=== PATIENT | female | born 1965 | race Caucasian/White ===

== ENCOUNTER 2020-08-07 06:01 | Inpatient (IN) ==
[2020-07-31 12:34] LABS: Basophils % 0.5 % (0.0-0.8); Eosinophils # 0.2 10*3/uL (0.0-0.87); Hematocrit 44.9 VOL% (35.7-47.0); Hemoglobin 14.4 GM/DL (12.0-16.0); Immature Granulocytes % 0.4 %; Immature Granulocytes Absolute 0.02 #; Lymphocytes # 1.7 10*3/uL (1.4-4.0); Mean Corpuscular HGB Conc 32.1 GM/DL (32-36); Mean Corpuscular Volume 94.1 FL (87-102); Mean Platelet Volume 9.5 FL (9.6-12.0); Neutrophils % 58.1 % (38.7-73.9); Platelet Count 268 T/CUMM (130-400); Red Blood Count 4.77 MC/CUMM (3.8-5.5); Red Cell Distribution Width 14.1 % (9.3-17.3); White Blood Count 5.7 T/CUMM (4-12)
[2020-07-31 12:41] LABS: Calcium 9.5 MG/DL (8.5-10.1); Osmolality,Calculated 275.7 MOS/KG (273-304); Potassium 4.6 MMOL/L (3.5-5.1)
[2020-07-31 12:49] LABS: Bacteria,Urine Occasional /HPF (Few); Bilirubin,Urine Negative (Negative); Blood, Urine Small mg/dL (Negative); Glucose,Urine (UA) Negative (Negative); Ketones,Urine Negative (Negative); Mucus,Urine Occasional /LPF (Occasional); Nitrite,Urine Negative (Negative); Protein,Urine Negative; RBC,Urine 1 /HPF (0-4); Squamous Epithelial Cell,Urine Occasional /HPF (0-10); Urine Appearance CLEAR (Clear); Urine Color Straw (Yellow); Urine Specific Gravity 1.012 (1.001-1.035); Urine Urobilinogen < 2.0 EU/DL (0.2-1.0)
[~2020-08-07 06:01] MED LIST: ALVIMOPAN 12 MG CAPSULE PO ONE; LEVOFLOXACIN INJ 500 MG/100 ML PREMIX IV ONE
[2020-08-07] MEDS ORDERED: LACTATED RINGERS 1,000 ML IV SCH (06:30)
[2020-08-07] MEDS ORDERED: MIDAZOLAM 2 MG/2 ML VIAL ONE (06:51)
[2020-08-07] MEDS ORDERED: propofoL 200 MG/20 ML VIAL IV ONE (06:51)
[2020-08-07] MEDS ORDERED: fentaNYL 100 MCG/2 ML VIAL ONE ×2 (06:51→08:29)
[2020-08-07] MEDS ORDERED: LIDOCAINE 2% 5 ML VIAL ONE (06:51)
[2020-08-07] MEDS ORDERED: ROCURONIUM 50 MG/5 ML VIAL IV ONE (06:51)
[2020-08-07] MEDS ORDERED: SCOPOLAMINE 1.5 MG PATCH TRANSDERM ONE (07:01)
[2020-08-07] MEDS ORDERED: SEVOFLURANE 1 UNIT/15 MINUTE INH ONE ×10 (07:09→10:15)
[2020-08-07] MEDS ORDERED: PHENYLEPHRINE 10 MG/1 ML VIAL IV ONE (08:13)
[2020-08-07] MEDS ORDERED: SODIUM CHLORIDE 0.9% 100 ML IV ONE (08:14)
[2020-08-07] MEDS ORDERED: DEXAMETHASONE 4 MG/1 ML VIAL ONE (08:30)
[2020-08-07] MEDS ORDERED: ONDANSETRON 4 MG/2 ML VIAL ONE (08:30)
[2020-08-07] MEDS ORDERED: LACTATED RINGERS 1,000 ML IV ONE (09:14)
[2020-08-07] MEDS ORDERED: GLYCOPYRROLATE 0.4 MG/2 ML VIAL ONE (10:15)
[2020-08-07] MEDS ORDERED: NALOXONE 0.4 MG/ML VIAL IV PRN ×2 (10:37→10:58)
[2020-08-07] MEDS ORDERED: diphenhydrAMINE 50 MG/1 ML VIAL IV PRN ×2 (10:37→10:58)
[2020-08-07] MEDS ORDERED: ONDANSETRON 4 MG/2 ML VIAL IV PRN ×2 (10:37→10:58)
[2020-08-07] MEDS ORDERED: HYDROmorphone 2 MG/1 ML VIAL IV PRN (10:58)
[2020-08-07] MEDS ORDERED: MEPERIDINE 25 MG/1 ML VIAL IV PRN (10:58)
[2020-08-07] MEDS ORDERED: PROMETHAZINE INJ 25 MG in SODIUM CHLORIDE 0.9% 50 ML IV PRN (10:58)
[2020-08-07 11:00] LABS: Bilirubin,Urine Negative (Negative); Blood, Urine Large mg/dL (Negative); Glucose,Urine (UA) Negative (Negative); Ketones,Urine Negative (Negative); Mucus,Urine Occasional /LPF (Occasional); Nitrite,Urine Negative (Negative); Protein,Urine 100 MG/DL; RBC,Urine 822 /HPF (0-4); Squamous Epithelial Cell,Urine Occasional /HPF (0-10); Urine Appearance Slightly Hazy (Clear); Urine Color Yellow (Yellow); Urine Specific Gravity 1.013 (1.001-1.035); Urine Urobilinogen < 2.0 EU/DL (0.2-1.0)
[2020-08-07] MEDS ORDERED: HYDROmorphone PCA 30 MG/30 ML SYRINGE IV SCH (11:00)
[2020-08-07] MEDS ORDERED: PROMETHAZINE 25 MG/1 ML VIAL ONE (11:10)
[2020-08-07] MEDS: DEXTROSE 5% NACL 0.45% 1,000 ML IV SCH (11:47)
[2020-08-07] MEDS: ALVIMOPAN 12 MG CAPSULE PO SCH (21:20)
[2020-08-08] MEDS ORDERED: SIMETHICONE CHEW 125 MG TABLET PO PRN (01:27)
[2020-08-08] MEDS ORDERED: SIMVASTATIN 40 MG TABLET PO SCH (01:30)
[2020-08-08] MEDS: DEXTROSE 5% NACL 0.45% 1,000 ML IV SCH (02:23)
[2020-08-08 05:01] LABS: Basophils % 0.2 % (0.0-0.8); Hematocrit 36.2 VOL% (35.7-47.0); Hemoglobin 12.2 GM/DL (12.0-16.0); Immature Granulocytes % 0.5 %; Immature Granulocytes Absolute 0.08 #; Lymphocytes # 0.6 10*3/uL (1.4-4.0); Lymphocytes % 3.6 % (21.3-54.2); Mean Corpuscular HGB Conc 33.7 GM/DL (32-36); Mean Corpuscular Volume 92.3 FL (87-102); Mean Platelet Volume 9.2 FL (9.6-12.0); Monocytes % 8.6 % (1.7-12.7); Neutrophils % 87.1 % (38.7-73.9); Platelet Count 253 T/CUMM (130-400); Red Blood Count 3.92 MC/CUMM (3.8-5.5); Red Cell Distribution Width 14.2 % (9.3-17.3); White Blood Count 15.5 T/CUMM (4-12)
[2020-08-08 05:24] LABS: Calcium 8.7 MG/DL (8.5-10.1); Osmolality,Calculated 279.7 MOS/KG (273-304)
[2020-08-08 05:26] LABS: Lymphocytes 4 % (20-55); Platelet Estimate Adequate; Segmented Neutrophils 85 % (50-85); Total Cells Counted 100
[2020-08-08] MEDS ORDERED: PROMETHAZINE 25 MG/1 ML VIAL IM PRN (05:38)
[2020-08-08] MEDS: ALVIMOPAN 12 MG CAPSULE PO SCH ×2 (08:09→21:30)
[2020-08-08] MEDS ORDERED: oxyCODONE/ACETAMINOPHEN 5-325 MG TABLET PO PRN ×3 (08:38→08:41)
[2020-08-08] MEDS ORDERED: SULFAMETHOX/TRIMETHOPRIM 800-160 MG TABLET PO SCH (09:00)
[2020-08-08] MEDS: SULFAMETHOX/TRIMETHOPRIM 800-160 MG TABLET PO SCH ×2 (17:04→21:30)
[2020-08-08] MEDS ORDERED: PANTOPRAZOLE 40 MG TABLET PO ONE (19:47)
[2020-08-08] MEDS: PANTOPRAZOLE 40 MG TABLET PO SCH (21:30)
[2020-08-09] MEDS: PANTOPRAZOLE 40 MG TABLET PO SCH (09:23)
[2020-08-09] MEDS: ALVIMOPAN 12 MG CAPSULE PO SCH (09:24)
[2020-08-09] MEDS: SULFAMETHOX/TRIMETHOPRIM 800-160 MG TABLET PO SCH (09:24)
[2020-08-09 16:32] VITALS: BP 131/77
[2020-08-13 23:36] LABS: Stone Source Passed Stone
== END 2020-08-09 16:40 | disposition home or self-care (01) | DRG 661 ==
LOC: N.RAD 06:01 → N.SDSINP 06:03 → N.4E 13:30
PROVIDERS: ADMIT Urology; ATTEND Urology